=== PATIENT | female | born 1970 | race African-American/Black ===

== ENCOUNTER 2024-04-20 13:27 | Emergency (ER) | payer MEDICAID, OTHER ==
[~2024-04-20] VITALS: Ht 165.1 cm; Wt 79.4 kg
[2024-04-20 14:06] VITALS: O2SAT 99
[2024-04-20] MEDS ORDERED: IBUP-2029 MT (16:23)
[2024-04-20] MEDS ORDERED: METH-653 MT (16:23)
[2024-04-20] MEDS: KETOROLAC 30MG/ML VIAL IM ONE (16:51)
[2024-04-20] MEDS: METHOCARBAMOL 500MG TABLET PO ONE (16:52)
[2024-04-20 17:30] VITALS: BP 162/92; PULSE 87; RESP 18; TEMP 98.7
== END 2024-04-20 17:31 | disposition home or self-care (01) ==
LOC: ER 13:27
DX: S33.5XXA Sprain of ligaments of lumbar spine, initial encounter (principal); S20.219A Contusion of unspecified front wall of thorax, initial encounter; S13.4XXA Sprain of ligaments of cervical spine, initial encounter; E78.00 Pure hypercholesterolemia, unspecified; I10 Essential (primary) hypertension; I25.2 Old myocardial infarction; Z98.890 Other specified postprocedural states; W18.39XA Other fall on same level, initial encounter; Y93.89 Activity, other specified; Y92.89 Other specified places as the place of occurrence of the external cause; Y99.8 Other external cause status
CPT/HCPCS: 99283; 71046; 81025; 96372; J1885